=== PATIENT | male | born 1975 | race African-American/Black ===

== ENCOUNTER 2022-11-11 21:18 | Emergency (ER) | payer MEDICAID, OTHER ==
[2022-11-11 21:25] VITALS: BP 140/67
[2022-11-11] MEDS ORDERED: HYDROcod/ACETAM 5/325 MG TABLET PO STA (21:42)
[2022-11-11] MEDS ORDERED: HYDROcod/ACET 5/325 Prepack 4 PO STA (21:42)
--- NOTE | 2022-11-11 21:50 | ED Physician Documentation ---
PD HPI UPPER EXT INJURY - Stated complaint Stated Complaint: WRIST PAIN - Chief complaint Chief Complaint: Trauma Ext - History obtained from History obtained from: Patient - Additonal information Additional information: In 2006 he had a major wrist injury and did require some surgical repair of the right, dominant wrist. Last night he tripped over a bicycle and landed on the wrist. It really did not hurt at the time and was doing okay overnight and for the most part during the day at work today. 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 Became much more painful over the distal dorsal wrist today. PD PAST MEDICAL HISTORY - Present Medications Home Medications: Ambulatory Orders Medication Instructions Recorded Confirmed HYDROcod/ACETAM 5/325 [Jones 5/325] 1 - 2 tab PO Q6H PRN #15 tablet 11/11/22 - Allergies Allergies/Adverse Reactions: Allergies Allergy/AdvReac Type Severity Reaction Status Date / Time No Known Drug Allergies Allergy Verified 11/11/22 21:23 PD ED PE NORMAL - Vitals Vital signs reviewed: Yes - General General: Alert and oriented X 3, No acute distress - Extremities Extremities: Other (Mild tenderness in the area of the proximal fourth metacarpal and carpals in that general area. He is unable to range the wrist due to pain. There is no snuffbox tenderness. No tenderness of the distal radius or ulna. No elbow tenderness. Normal neurovascular function in the right hand.) - Neuro Neuro: Alert and oriented X 3, Normal speech - Psych Psych: Normal mood, Normal affect Results - Vitals Vitals: Vital Signs - 24 hr 11/11/22 21:23 Temperature 36.5 C Heart Rate 71 Respiratory 16 Rate Blood Pressure 140/67 H O2 Saturation 98 Oxygen O2 Source Room air - Rads (name of study) 4v R wrist XR Radiology: Final report received, EMP read indepedently PD Medical Decision Making - ED course ED course: 47yo male R hand dominant with Hx surgery. Landed on R wrist and now pain, but gradual and increased after work.. Xr shows lunate anchors, NAD. placed in splint for comfort. C/W sprain + inflammation w prior surgery. Rpt imaging advised if not improving as expected. Departure - Departure Disposition: 01 Home, Self Care Clinical Impression: Right wrist sprain Qualifiers: Encounter type: initial encounter Qualified Code(s): S63.501A - Unspecified sprain of right wrist, initial encounter Condition: Good Record reviewed to determine appropriate education?: Yes Instructions: ED Sprain Wrist Prescriptions: HYDROcod/ACETAM 5/325 [Jones 5/325] 1 - 2 tab PO Q6H PRN #15 tablet PRN Reason: Pain Comments: If not improved in a week's time please follow-up with your primary care physician for reevaluation and potential repeat x-rays. Return for new or worsening symptoms. I sent a prescription for stronger pain killers to [facility] in [place]. If pain is mild you can take ibuprofen for it. Ice, gentle stretching is okay. I am prescribing a short course of narcotic pain medication for you. These are potentially dangerous and addictive medications that should be used carefully. These medications may constipate you. Take an jnkf-gjf-leyhsad stool softener (docusate) twice daily with plenty of water while taking these medications. If you go 24 hours without a bowel movement, take artd-zjk-jnbypme miralax, per package instructions. Do not drink or drive while taking these medications. If you received narcotic or sedating medications while in the emergency department, do not drive for 24 hours. Store this medication in a safe, secure place and out of reach of children. It is a violation of federal law to give or sell this medication to another person or to use in a manner other than prescribed. The ED will not refill narcotic prescriptions, including prescriptions lost or stolen. To dispose of unwanted medications: 1. [facility] at [address] in [place] has a medication drop box. They accept prescription medications (in pill form) Tuesday through Tuesday 9:00 a.m. to 5:00 p.m. 2. The [facility] [employer] accepts prescription medications (in pill form only) for disposal year round. Call for more information. 3. Contact the [facility] for the next [facility] sponsored prescription drug collection event. , [phone], or [phone]; Note that many narcotic pain relievers also contain Tylenol/acetaminophen. Please ensure that your total dose of acetaminophen from all sources does not exceed 3 g (3000 mg) per day. Discharge Date/Time: 11/11/22 22:05
--- NOTE | 2022-11-11 22:05 | XRAY Report ---
PROCEDURE: Wrist 4 View RT INDICATIONS: Trauma TECHNIQUE: 4 views of the wrist were acquired. COMPARISON: None. FINDINGS: Bones: No displaced fractures or dislocations. There are surgical anchors within the lunate. No susp icious bony lesions. Scaphoid view: The scaphoid demonstrates no displaced fracture, with evaluation slightly limited by positioning. Soft tissues: No suspicious soft tissue calcifications. IMPRESSION: 1. No displaced fracture or dislocation. 2. If there is persistent clinical suspicion for occult fracture, recommend repeat study in 7-10 days . Reviewed by: Too Rushing MD on 11/11/2022 10:03 PM [facility] [[email or web address]] Approved by: Too Rushing MD on 11/11/2022 10:03 PM [facility] [[email or web address]] Station ID: [id number]
== END 2022-11-11 22:05 | disposition home or self-care (01) ==
LOC: ED 21:18
DX: S63.501A Unspecified sprain of right wrist, initial encounter (principal); X50.3XXA Overexertion from repetitive movements, initial encounter; Y93.H3 Activity, building and construction; Y92.89 Other specified places as the place of occurrence of the external cause; Y99.0 Civilian activity done for income or pay
CPT/HCPCS: 73110; 99283; A9270